=== PATIENT | female | born 1965 | race Caucasian/White ===

== ENCOUNTER 2016-12-11 07:30 | Inpatient (IN) | payer OTHER ==
[~2016-12-11] VITALS: Ht 160 cm; Wt 63.3 kg
[2017-04-08 12:47] VITALS: BMI 25.1
[2017-04-09] VITALS (21 sets, daily range): BP systolic 100–120; BP diastolic 53–80; PULSE 64–84; RESP 10–19; Ht 160 cm; Wt 63.3 kg
--- NOTE | 2017-04-09 06:17 | PREOPHP ---
DATE OF ADMISSION: 04/09/2017 HISTORY OF PRESENT ILLNESS: This is a 51-year-old lady, 4, para 2 with 2 abortions. Her last normal menstrual period was a few days prior to admission. She was admitted for a supracervical hysterectomy and bilateral salpingo-oophorectomy. This patient is known to have a fibroid uterus. She bleeds very heavy with her period, associated with blood clots, lasting for 5 days. She is having lower abdominal pains and low back pains for a few years and getting worse up to the time of admission. She wanted to go for the supracervical hysterectomy. She never had any abnormal Pap smear before and BSO. The procedures were explained to her, and she understood everything totally. The risks, benefits, and alternatives were discussed with her as well. PAST PERSONAL HISTORY: No history of diabetes, TB, asthma, nor allergy. SOCIAL HISTORY: Patient does not smoke. She does not drink. MEDICATIONS: She does state she takes meloxicam. GYNECOLOGICAL HISTORY: She had menarche at the age of 13, every 28 days' interval, 3-4 days' duration, and moderate in amount. FAMILY HISTORY: Mother has high blood pressure. OBSTETRICAL HISTORY: She is 4, para 2. She had 2 normal deliveries. REVIEW OF SYSTEMS: CARDIOVASCULAR: No chest pains. LUNGS: No cough. GASTROINTESTINAL: No diarrhea. No vomiting. GENITOURINARY: No dysuria. PHYSICAL EXAMINATION: GENERAL APPEARANCE: Reveals a conscious, coherent lady and in not acute distress. VITAL SIGNS: Blood pressure 120/80, pulse rate 80 per minute, respirations 16 per minute. BREASTS, HEART AND LUNGS: Within normal limits. ABDOMEN: Soft. PELVIS: Uterus about 18-week size, thin, irregular. Adnexa could not be properly delineated due to the size of the uterus. Rectal exam confirmed the pelvic findings. EXTREMITIES: No pedal edema. ADMITTING DIAGNOSES: 1. Symptomatic fibroid uterus. 2. Menorrhagia. 3. Chronic pelvic pain. PLAN: Patient was planned to have supracervical hysterectomy and BSO. The procedures were explained to her, and she understood everything totally. The risks, benefits, and alternatives were discussed with her as well. Patient never had any abnormal Pap smear before. She is aware that she needs to go for a Pap smear every 3 years if normal until the age of 66. Dictated By: Conchita Epps MD /pro/elysia /Document#: [id number]
[2017-04-09] MEDS ORDERED: FERR256T PO (06:20)
[2017-04-09] MEDS ORDERED: CHOL100062 PO (06:20)
[2017-04-09] MEDS ORDERED: VASOPRESSIN 20 UNITS INJ ONE (06:56)
[2017-04-09] MEDS ORDERED: FENTAnyl 50 MCG/ML VIAL ONE (07:30)
[2017-04-09] MEDS ORDERED: morphine SULFATE/PF (10 MG/10 ML) INJ ONE (07:30)
[2017-04-09] MEDS ORDERED: MIDAZOLAM 1 MG/ML 2 ML INJ ONE (07:30)
[2017-04-09] MEDS ORDERED: CEFAZOLIN 1 GM INJ ONE (07:52)
[2017-04-09] MEDS ORDERED: DEXAMETHASONE 4 MG/ML 1 ML INJ ONE (07:53)
[2017-04-09] MEDS ORDERED: ONDANSETRON 4 MG INJ ONE (07:53)
[2017-04-09] MEDS ORDERED: FAMOTIDINE 20 MG INJ ONE (07:53)
[2017-04-09] MEDS ORDERED: ONDANSETRON 4 MG INJ IV PRN ×2 (08:30→10:00)
[2017-04-09] MEDS ORDERED: HYDROmorphONE 1 MG/ML SYG IV PRN (08:30)
[2017-04-09] MEDS ORDERED: NALBUPHINE HCL (10 MG/1 ML) INJ IV PRN (08:30)
[2017-04-09] MEDS ORDERED: ZOLPIDEM 5 MG TAB PO PRN (08:30)
[2017-04-09] MEDS ORDERED: TRIMETHOBENZAMIDE 100 MG/ML VIAL IM PRN (08:30)
[2017-04-09] MEDS ORDERED: DIPHENHYDRAMINE 50 MG INJ IV PRN (08:30)
[2017-04-09] MEDS ORDERED: KETOROLAC 30 MG INJ IV PRN (08:30)
[2017-04-09] MEDS ORDERED: NALOXONE (0.4 MG/ML) INJ IV PRN (08:30)
[2017-04-09] MEDS ORDERED: PROPOFOL 20 ML ONE (09:15)
[2017-04-09] MEDS ORDERED: ROCURONIUM 50 MG INJ ONE (09:15)
[2017-04-09] MEDS ORDERED: LIDOCAINE 2% (SDV) 5 ML INJ ONE (09:15)
[2017-04-09] MEDS ORDERED: SUGAMMADEX SODIUM 200 MG/2 ML VIAL IV ONE (09:22)
--- NOTE | 2017-04-09 09:33 | SIPON ---
Date/Time of Note Date/Time of Note DATE: 04/09/17 TIME: 09:30 Operative Report Preoperative Diagnosis MENORRHAGIA CHRONIC PELVIC PAIN ANMEIA PERINEAL RELAXATION Postoperative Diagnosis MENORRHAGIA CHRONIC PELVIC PAIN PERINEAL RELAXATION SEVERE PELVIC ADHESION Operation/Procedure Performed EXPLORATORY LAPAROTOMY SUPRACERVICAL HYSTERECTOMY BILATERAL SALPHINGO OOPHORECTOMY LYSIS OF ADHESION AND VAGINAL VAULT SUSPENSION Surgeon see signature line senior administrative assistant DR EASTON Anesthesia: general Estimated blood loss: 150 - 200 ml's Transfusion Required none Specimen PART OF THE CERVIX AND BODY OF UTERUS BOTH TUBES AND OVARIES Grafts/Implants none Complications none BARBI CUELLO MD Apr 09, 2017 09:33
[2017-04-09] MEDS: HYDROmorphONE 1 MG/ML SYG IV PRN ×2 (10:09→22:22)
[2017-04-09] MEDS: LACTATED RINGER'S 1,000 ML IV SCH ×2 (20:00→21:06)
[2017-04-10] VITALS (10 sets, daily range): BP systolic 84–133; BP diastolic 47–72; PULSE 61–75; RESP 18–20
[2017-04-10] MEDS: LACTATED RINGER'S 1,000 ML IV SCH ×3 (04:45→20:00)
--- NOTE | 2017-04-10 04:45 | OPR ---
DATE OF OPERATION: 04/09/2017 PREOPERATIVE DIAGNOSES: 1. Chronic pelvic pain. 2. Menorrhagia. 3. Fibroid uterus. 4. Perineal relaxation. POSTOPERATIVE DIAGNOSES: 1. Chronic pelvic pain. 2. Menorrhagia. 3. Fibroid uterus. 4. Perineal relaxation. 5. Severe pelvic and abdominal adhesions. SURGEON: Dr. Epps. DENTAL SPECIALIST: Dr. Steiner. ANESTHESIA: General. ANESTHESIOLOGIST: Dr. Cee. OPERATION PERFORMED: Exploratory laparotomy, supracervical hysterectomy, bilateral salpingo-oophorectomy, lysis of severe pelvic adhesions, and vaginal vault suspension. OPERATIVE PROCEDURE: Under general anesthesia, the patient was prepped and draped in the usual fashion for abdominal surgery. After checking for the effect of the anesthesia, a Pfannenstiel incision 12 cm skin incision was performed. The incision was carried from the skin up to the fascia. Upon opening the skin up to the fascia, the small blood vessels were noted to be oozing and these were all cauterized. Fascia was opened transversely followed by splitting the muscles vertical and the peritoneum vertically. Upon opening the abdominal cavity, the uterus was noted to be about 20-week size, irregular and multiple fibroids were noted. The uterus was pulled out from the pelvic cavity. Two 8-inch Kochers were placed at the paracervical and paraovarian tissue for traction. The left round ligament was grasped with 2 Kochers and cut. A stick tie with 0 Vicryl was used and tied and the left broad ligament was skeletonized for the development of the bladder flap. The left infundibulopelvic ligament was grasped with 2 June clamps and for backflow with straight Antonette and cut. At first a free tie of 0 Vicryl was used followed by June suture. The same thing was done on the right side. Right round ligament grasped with 2 Kochers and cut. A stick tie with 0 Vicryl was used and tied. Then the right broad ligament was skeletonized for the development of the bladder flap. Then the right infundibulopelvic ligament was grasped with 2 June clamps and for backflow with straight Antonette and cut. At first, a free tie with 0 Vicryl was used followed by June suture. Bleeders were checked and there was no bleeding noted. Then the left tube and the left ovary was deeply attached to the left pelvic wall and to the bowels. All these adhesions were lysed by sharp and blunt dissection. Then the broad ligament on both sides was skeletonized for the development of the bladder flap. Then the left uterine vessels were brought to view. The left uterine vessels were grasped with 2 June clamps and for backflow with straight Antonette and cut. A stick tie with 0 Vicryl was used on its clamp. Bleeders were checked and there was no bleeding noted. The same thing was done on the right side. Bleeders were checked and there was no bleeding noted. Then 2 Antonette's were placed at its paracervical tissue on both sides and on its clamp, the tissue was cut and a stick tie with 0 Vicryl was used. The body of the uterus was excised. The remaining cervix was grasped with 2 single-tooth tenaculums. Self-retaining retractor was put in place. The bladder blade was put in place. The bowels were packed away from the operative field with the aid of 5 wet lap sponges. The upper blade was put in place. Once again, the bladder was from the cervix by sharp and blunt dissection. About 8 Kochers were placed at its paracervical tissue on the left and right side and every Antonette was put in. Prior to putting in the Antonette, the bladder was from the cervix by sharp and blunt dissection. On each Antonette a stick tie with 0 Vicryl was used. Bleeders were checked and there was no bleeding noted. 2/3's of the cervix was excised and the remaining cervix was grasped with 2 single-tooth tenaculums. Then, the remaining cervix was sutured in 3 layers using 0 Vicryl, a continuous suture was used. The right angle of the cervix was sutured with right paracervical tissue and in turn, tied with the right round ligament for vaginal vault suspension. After checking for any bleeders, in which there were none, same thing was done on the left side. There were some adhesions noted at the back of the uterus to the cul-de-sac. All these adhesions were lysed by sharp and blunt dissection. Then all the stumps were checked for any bleeders, and there was no bleeding noted. After correct sponge count, needle count, and instrument count and after checking for any bleeders, in which there were none, the raw area was covered with Fibrillar. Then after correct sponge count, needle count, and instrument count as confirmed by the radiation technician and profile grinder, the abdomen was closed in the usual fashion using 0 Vicryl for the peritoneum, 0 Vicryl for the muscles, for the fascia 0 Vicryl continuous stitch was used, followed by a few [id number] sutures. For the subcutaneous tissue, it was closed with 3-0 Vicryl, and the skin was closed with 3-0 Vicryl subcuticular suture was used. The patient tolerated the procedure well. ESTIMATED BLOOD LOSS: About 200 cc. Vital signs were stable during and after the procedure. Dictated By: Conchita Epps MD /pro/bro /Document#: [id number] RADHA
[2017-04-10 05:05] LABS: BASOPHILS % 0.3 % (0.0-2.0); HEMATOCRIT 27.5 % (37.0-47.0); HEMOGLOBIN 8.5 g/dl (12.0-16.0); LYMPHOCYTES # 1.4 10^3/ul (0.8-2.9); LYMPHOCYTES % 12.7 % (15.0-51.0); MEAN CORPUSCULAR HEMOGLOBIN 24.5 pg (29.0-33.0); MEAN CORPUSCULAR HGB CONC 30.9 g/dl (32.0-37.0); MEAN CORPUSCULAR VOLUME 79.3 fl (82.0-101.0); MEAN PLATELET VOLUME 11.6 fl (7.4-10.4); MONOCYTE # 0.6 10^3/ul (0.3-0.9); MONOCYTES % 5.6 % (0.0-11.0); NEUTROPHIL # 8.6 10^3/ul (1.6-7.5); PLATELET COUNT 223 10^3/UL (140-415); RED BLOOD COUNT 3.47 10^6/ul (4.20-5.40); RED CELL DISTRIBUTION WIDTH 18.8 % (11.5-14.5); WHITE BLOOD COUNT 10.6 10^3/ul (4.8-10.8)
[2017-04-10 05:22] LABS: ALBUMIN 3.1 g/dl (3.3-4.9); ALBUMIN/GLOBULIN RATIO 1.19; BILIRUBIN,INDIRECT 0.7 mg/dl (0-1.1); BILIRUBIN,TOTAL 0.7 mg/dl (0.2-1.3); CALCIUM 8.1 mg/dl (8.4-10.2); CREATININE 0.63 mg/dl (0.44-1.00); POTASSIUM 4.7 mmol/L (3.5-5.1); TOTAL PROTEIN 5.7 g/dl (6.1-8.1)
[2017-04-10] MEDS: MAGNESIUM HYDROXIDE 30ML CUP PO SCH ×2 (05:36→21:00)
[2017-04-10] MEDS ORDERED: BISACODYL 10 MG SUPP PR ONE ×3 (06:00→17:00)
[2017-04-10] MEDS ORDERED: HYDROmorphONE 2 MG TAB PO PRN (06:00)
[2017-04-10] MEDS ORDERED: OXYCODONE/ACETAMINOPHEN (5/325) TAB PO PRN ×2 (10:00)
[2017-04-10] MEDS ORDERED: SPECIAL NON-STANDARD MEDICATION PO PRN (11:30)
[2017-04-10] MEDS: IBUPROFEN 800 MG TAB PO SCH ×2 (12:53→17:28)
[2017-04-10] MEDS: OXYCODONE/ACETAMINOPHEN (5/325) TAB PO PRN (15:17)
[2017-04-10] MEDS ORDERED: MAGNESIUM HYDROXIDE 30ML CUP PO ONE (16:00)
[2017-04-10 19:02] LABS: BASOPHILS % 0.4 % (0.0-2.0); EOSINOPHILS % 0.3 % (0.0-7.0); HEMATOCRIT 28.7 % (37.0-47.0); LYMPHOCYTES # 1.4 10^3/ul (0.8-2.9); LYMPHOCYTES % 12.8 % (15.0-51.0); MEAN CORPUSCULAR HEMOGLOBIN 25.4 pg (29.0-33.0); MEAN CORPUSCULAR HGB CONC 31.4 g/dl (32.0-37.0); MEAN CORPUSCULAR VOLUME 80.8 fl (82.0-101.0); MEAN PLATELET VOLUME 11.4 fl (7.4-10.4); MONOCYTE # 0.6 10^3/ul (0.3-0.9); MONOCYTES % 5.5 % (0.0-11.0); NEUTROPHIL # 8.8 10^3/ul (1.6-7.5); NEUTROPHILS % 80.5 % (39.0-77.0); PLATELET COUNT 231 10^3/UL (140-415); RED BLOOD COUNT 3.55 10^6/ul (4.20-5.40); RED CELL DISTRIBUTION WIDTH 18.8 % (11.5-14.5); WHITE BLOOD COUNT 10.9 10^3/ul (4.8-10.8)
[2017-04-11 02:00] VITALS: BP 125/75; RESP 19
[2017-04-11] MEDS: LACTATED RINGER'S 1,000 ML IV SCH ×2 (04:00→12:00)
[2017-04-11 05:20] LABS: BASOPHILS % 0.4 % (0.0-2.0); EOSINOPHILS # 0.1 10^3/ul (0.0-0.5); EOSINOPHILS % 1.6 % (0.0-7.0); HEMATOCRIT 28.7 % (37.0-47.0); HEMOGLOBIN 8.7 g/dl (12.0-16.0); LYMPHOCYTES # 1.7 10^3/ul (0.8-2.9); MEAN CORPUSCULAR HEMOGLOBIN 24.3 pg (29.0-33.0); MEAN CORPUSCULAR HGB CONC 30.3 g/dl (32.0-37.0); MEAN CORPUSCULAR VOLUME 80.2 fl (82.0-101.0); MEAN PLATELET VOLUME 11.4 fl (7.4-10.4); MONOCYTE # 0.6 10^3/ul (0.3-0.9); MONOCYTES % 7.8 % (0.0-11.0); NEUTROPHIL # 5.6 10^3/ul (1.6-7.5); NEUTROPHILS % 68.8 % (39.0-77.0); PLATELET COUNT 233 10^3/UL (140-415); RED BLOOD COUNT 3.58 10^6/ul (4.20-5.40); WHITE BLOOD COUNT 8.2 10^3/ul (4.8-10.8)
[2017-04-11] MEDS: IBUPROFEN 800 MG TAB PO SCH ×4 (05:30→18:15)
[2017-04-11 08:00] VITALS: BP 121/65; RESP 18
[2017-04-11] MEDS: MAGNESIUM HYDROXIDE 30ML CUP PO SCH (09:00)
[2017-04-11] MEDS: OXYCODONE/ACETAMINOPHEN (5/325) TAB PO PRN ×2 (09:21→15:55)
[2017-04-11 12:56] VITALS: BP 110/62; RESP 18
== END 2017-04-11 18:58 | disposition home or self-care (01) | DRG 743 ==
LOC: REC 04-09 06:04 → MS1 04-09 10:55
PROVIDERS: ADMIT Obstetrics & Gynecology; ATTEND Obstetrics & Gynecology
PROC: 0UT20ZZ Resection of Bilateral Ovaries, Open Approach (ICD-10-PCS; 2017-04-09)
PROC: 0UBC0ZZ Excision of Cervix, Open Approach (ICD-10-PCS; 2017-04-09)
PROC: 0UT70ZZ Resection of Bilateral Fallopian Tubes, Open Approach (ICD-10-PCS; 2017-04-09)
PROC: 0DNW0ZZ Release Peritoneum, Open Approach (ICD-10-PCS; 2017-04-09)
PROC: 0USG0ZZ Reposition Vagina, Open Approach (ICD-10-PCS; 2017-04-09)
PROC: 0UT90ZL Resection of Uterus, Supracervical, Open Approach (ICD-10-PCS; principal; 2017-04-09 07:30)
DX: D25.9 Leiomyoma of uterus, unspecified (principal); G89.29 Other chronic pain; N73.6 Female pelvic peritoneal adhesions (postinfective); N81.89 Other female genital prolapse
CPT/HCPCS: 80053; 84703; 85025; 86850; 86900; 86901; 87086; 88305; J0690; J1100; J1170; J1200; J1885; J2250; J2274; J2405; J3010; J7120